=== PATIENT | female | born 1995 | race Caucasian/White ===

== ENCOUNTER → 2016-07-24 | Outpatient (CLI) | payer OTHER ==
[~2016-07-24] MED LIST: AMOX875T PO; PSEUTAB98 PO
== END | disposition home or self-care (01) ==
LOC: C.PAPS 09:31
PROVIDERS: ATTEND Physician Assistant
DX: Z12.4 Encounter for screening for malignant neoplasm of cervix (principal)

== ENCOUNTER → 2017-03-03 | Outpatient (CLI) | payer OTHER ==
[2017-03-06 13:24] LABS: CHLAMYDIA TRACH RNA*** NOT DETECTED (NOT DETECTED); GC (NEIS GONORRHOEAE)RNA** NOT DETECTED (NOT DETECTED); HERPES SIMPLEX CULT SOURCE GENITAL-VAGINAL; HERPES SIMPLEX VIRUS CULT NOT ISOLATED (NOT ISOLATED); TRICHOMONAS VAGINALIS RNA** NOT DETECTED (NOT DETECTED)
== END | disposition home or self-care (01) ==
LOC: C.LABSPEC 16:17
PROVIDERS: ATTEND Physician Assistant
DX: N90.89 Other specified noninflammatory disorders of vulva and perineum (principal); N94.89 Other specified conditions associated with female genital organs and menstrual cycle